=== PATIENT | male | born 1985 | race Caucasian/White ===

== ENCOUNTER 2019-12-16 22:49 | Emergency (ER) | payer BC ==
[~2019-12-16] VITALS: Ht 177.8 cm; Wt 74.8 kg
[2019-12-16] MEDS ORDERED: AUGMENTIN 875-1 EACH PO (23:40)
[2019-12-16 23:51] VITALS: BP 122/64
== END 2019-12-16 23:51 | disposition home or self-care (01) ==
LOC: M.ERS 22:49
DX: S02.2XXA Fracture of nasal bones, initial encounter for closed fracture (principal); S01.511A Laceration without foreign body of lip, initial encounter; Z88.6 Allergy status to analgesic agent; Z88.8 Allergy status to other drugs, medicaments and biological substances; Y08.89XA Assault by other specified means, initial encounter; Y93.89 Activity, other specified; Y92.89 Other specified places as the place of occurrence of the external cause; Y99.8 Other external cause status